=== PATIENT | female | born 2000 | race Caucasian/White ===

== ENCOUNTER 2024-09-22 19:06 | Emergency (ER) | payer MEDICAID ==
[~2024-09-22] VITALS: Ht 157.5 cm; Wt 58.9 kg
[2024-09-22 19:12] VITALS: O2SAT 98
[2024-09-22 19:33] VITALS: BP 96/60; PULSE 98; RESP 18; TEMP 36.94740; O2SAT 100
== END 2024-09-23 00:05 | disposition left against medical advice (07) ==
LOC: ER 19:06
DX: R55 Syncope and collapse (principal); Z53.21 Procedure and treatment not carried out due to patient leaving prior to being seen by health care provider
CPT/HCPCS: 93005